=== PATIENT | female | born 1950 | race Two or more races ===

== ENCOUNTER 2017-10-05 04:32 | Emergency (ER) | payer OTHER, MEDICAID ==
[~2017-10-05] VITALS: Ht 152.4 cm; Wt 79.4 kg
[~2017-10-05 04:32] MED LIST: ASPI81TA27 PO; INSUINJ32; LOSA25TA9; METF-372; PRAV20TA3
[2017-10-05 05:42] LABS: Urine Bacteria NONE SEEN /hpf (None Seen); Urine Blood Negative /uL (Negative); Urine Mucus FEW (None Seen); Urine Specific Gravity 1.024 (1.001-1.035); Urine WBC 4 /hpf (0 - 5)
[2017-10-05 05:54] LABS: Basophils # (auto) 0 uL; Basophils % (auto) 0.2 % (0.0-2.0); Eosinophils # (auto) 0 uL; Eosinophils % (auto) 0.2 % (0.0-7.0); Hemoglobin 13.2 g/dL (12.2-16.2); Lymphocytes # (auto) 1.5 uL; Lymphocytes % (auto) 15.4 % (10.0-50.0); Mean Corpuscular Hemoglobin 30.6 pg (28.0-32.0); Mean Corpuscular Hgb Conc. 33.9 g/dL (32.0-36.0); Mean Corpuscular Volume 90.1 fL (80.0-100.0); Monocytes # (auto) 0.5 uL; Monocytes % (auto) 5.2 % (0.0-12.0); Neutrophils # (auto) 7.8 uL; Platelet Count (auto) 235 10^3/uL (140-450); Red Blood Cells 4.33 10^6/uL (4.0-5.20); Red Cell Distribution Width 13.8 % (11.8-14.3); White Blood Cell 9.8 10^3/uL (4.4-10.8)
[2017-10-05 06:13] LABS: Alanine Aminotransferase 101 U/L (13-56); Albumin 3.5 g/dL (3.4-5.0); Amylase 24 U/L (25-115); Anion Gap 8 (5-15); Aspartate Aminotransferase 88 U/L (15-37); BUN/Creatinine Ratio 12.7; Blood Urea Nitrogen 8 mg/dL (7-18); Calcium 8.5 mg/dL (8.5-10.1); Carbon Dioxide 26 mmol/L (21-32); Chloride 101 mmol/L (98-107); GFR African American 122 mL/min; GFR Non-African American 100 mL/min; Glucose 267 mg/dL (74-106); Lipase 117 U/L (73-393); Potassium 3.9 mmol/L (3.5-5.1); Sodium 135 mmol/L (136-145)
[2017-10-05 06:18] LABS: Alkaline Phosphatase 195 U/L (45-117); Bilirubin, Total 0.5 mg/dL (0.2-1.0)
[2017-10-05 11:19] VITALS: BP 98/65
== END 2017-10-05 13:09 | disposition home or self-care (01) ==
LOC: ER 04:32
DX: N39.0 Urinary tract infection, site not specified (principal); I10 Essential (primary) hypertension; E11.65 Type 2 diabetes mellitus with hyperglycemia; R74.8 Abnormal levels of other serum enzymes; M19.90 Unspecified osteoarthritis, unspecified site; Z79.82 Long term (current) use of aspirin; Z79.4 Long term (current) use of insulin
CPT/HCPCS: 36415; 74176; 80053; 81001; 82150; 83690; 84484; 85025; 93005

== ENCOUNTER 2020-03-13 21:00 | Inpatient (IN) | payer OTHER, MEDICAID ==
[~2020-03-13] VITALS: Ht 160 cm; Wt 33.9 kg
[~2020-03-13 21:00] MED LIST changes: +ASPI-543 PO; -ASPI81TA27 PO; +LOSA25TA38; -LOSA25TA9
[2020-03-13] MEDS ORDERED: SODIUM CHLORIDE 0.9% 1,000 ML IV ONE (21:17)
[2020-03-13 22:18] LABS: Red Blood Cells 3.86 10^6/uL (4.0-5.20)
[2020-03-13 22:20] LABS: Hematocrit 37.8 % (36.0-46.0); Hemoglobin 12.2 g/dL (12.2-16.2); Mean Corpuscular Hemoglobin 31.6 pg (28.0-32.0); Mean Corpuscular Hgb Conc. 32.2 g/dL (32.0-36.0); Platelet Count (auto) 62 10^3/uL (140-450); Red Cell Distribution Width 15.5 % (11.8-14.3); White Blood Cell 28.5 10^3/uL (4.4-10.8)
[2020-03-13 22:29] LABS: Basophils % (manual) 0 (0.0-2.0); Blast Cells 0; Eosinophils % (manual) 0 (0-7); Promyelocytes % 0; Reactive Lymphocytes 0
[2020-03-13 22:39] LABS: Albumin 2.5 g/dL (3.4-5.0); Calcium 7.9 mg/dL (8.5-10.1); Magnesium 1.7 mg/dL (1.6-2.6); Potassium 3.9 mmol/L (3.5-5.1)
[2020-03-13 22:48] LABS: BUN/Creatinine Ratio 10.9; Bilirubin, Total 1.4 mg/dL (0.2-1.0); CRP High Sensitivity 9.63 mg/dL (< 0.3); Total Protein 6.2 g/dL (6.4-8.2)
[2020-03-13 23:18] LABS: Band Neutrophils % (manual) 15; Lymphocytes % (manual) 8 (10.0-50.0); Metamyelocytes % 3; Monocytes % (manual) 1 (0-12); Myelocytes % 1
[2020-03-13 23:46] LABS: INR 1.65 (0.9-1.15); Partial Thromboplastin Time 45.6 sec (23.64-32.05)
[2020-03-14 00:09] LABS: Urine Bacteria FEW /hpf (None Seen); Urine Blood 2+ /uL (Negative); Urine Hyaline Cast FEW /lpf (0 - 2); Urine Mucus FEW (None Seen); Urine Specific Gravity 1.013 (1.001-1.035); Urine WBC 107 /hpf (0 - 5)
[2020-03-14] MEDS ORDERED: PIPERACILLIN-TAZOB 3.375GM 100 ML IV ONE (00:15)
[2020-03-14] MEDS ORDERED: SODIUM CHLORIDE 0.9% 500 ML IV ONE (00:15)
[2020-03-14] MEDS ORDERED: ENOXAPARIN SOD 80 MG/0.8ML SYRINGE SC ONE (00:15)
[2020-03-14] MEDS ORDERED: DexAMETHasone SOD PHOS 10MG/1ML VIAL INJ ONE (00:28)
[2020-03-14] MEDS ORDERED: NOREPINEPHRINE 8 MG/250ML KIT 250 ML IV SCH ×2 (01:14→08:15)
[2020-03-14 01:42] LABS: Lactic Acid w/Reflex 6.5 mmol/L (0.4-2.0)
[2020-03-14] MEDS ORDERED: SODIUM CHLORIDE 0.9% 1,000 ML IV SCH (04:07)
[2020-03-14] MEDS ORDERED: ATORVASTATIN 20 MG TAB PO ONE (04:15)
[2020-03-14] MEDS ORDERED: DOCUSATE SOD 100 MG CAP PO PRN (04:15)
[2020-03-14] MEDS ORDERED: MORPHINE SULF INJ 2 MG/ML SYRINGE 1ML IV PRN (04:15)
[2020-03-14] MEDS ORDERED: ACETAMINOPHEN 325 MG TAB PO PRN (04:15)
[2020-03-14] MEDS ORDERED: ONDANSETRON HCL 4 MG/2 ML VIAL IV PRN (04:15)
[2020-03-14] MEDS ORDERED: IPRATROPIUM BROM 0.5 MG/2.5ML INH SOL NEB PRN (04:15)
[2020-03-14] MEDS ORDERED: HYDROcodone-ACET 5/325MG TAB PO PRN (04:15)
[2020-03-14] MEDS ORDERED: DEXTROSE (50%) 50ML SYRG IV PRN (04:15)
[2020-03-14] MEDS ORDERED: ALBUTEROL SULF 2.5 MG/0.5ML(0.5%) NEB SOLN NEB PRN (04:15)
[2020-03-14] MEDS ORDERED: VANCOMYCIN PER PHARMACY 0 MG IV SCH (04:15)
[2020-03-14] MEDS ORDERED: METOPROLOL TARTRATE 1MG/1ML-5ML VIAL IV PRN (04:15)
[2020-03-14] MEDS ORDERED: VANCOMYCIN 1GM/250ML 250 ML IV ONE (05:00)
[2020-03-14] MEDS ORDERED: PIPERACILLIN-TAZOB 3.375GM 100 ML IV SCH (06:00)
--- NOTE | 2020-03-14 07:09 | NUR ---
Respiratory note: ASSESSED PT FOR PRN MED NEB AT THIS TIME, NO DISTRESS NOTED, NO TX INDICATED. PULSE OX 95% ON RA, HR 103, RR 22, BILATERAL BS DECREASED
[2020-03-14] MEDS ORDERED: InsuLIN REG 1unit/0.01ml Soln (100units/ml) SC SCH (08:00)
[2020-03-14] MEDS ORDERED: ACCU-CHEK COMFORT CURVE STRIP VI SCH (08:00)
[2020-03-14] MEDS ORDERED: SODIUM CHLORIDE 0.9% 1,000 ML IV ONE (08:15)
[2020-03-14] MEDS ORDERED: FUROSEMIDE 20 MG/2 ML VIAL ONE (08:18)
[2020-03-14] MEDS ORDERED: cefTRIAXone 1GM/50ML D5W 50 ML IV SCH (09:00)
[2020-03-14 09:47] VITALS: BP 113/60
[2020-03-14] MEDS ORDERED: DOCUSATE SOD 100 MG CAP PO SCH (10:00)
[2020-03-14] MEDS ORDERED: DexAMETHasone INJECTION 10 MG in D5W 5% 50 ML IV SCH (10:00)
[2020-03-14] MEDS ORDERED: methylPREDNISolone SOD SUCC 125 MG/2 ML VL IV SCH (10:00)
[2020-03-14] MEDS ORDERED: CLOPIDOGREL BISULFATE 75 MG TAB PO SCH (10:00)
[2020-03-14] MEDS ORDERED: ASPirin 81 mg TAB PO SCH (10:00)
[2020-03-14] MEDS ORDERED: ENOXAPARIN SOD 80 MG/0.8ML SYRINGE SC SCH (22:00)
[2020-03-15] MEDS ORDERED: VANCOMYCIN 1GM/250ML 250 ML IV SCH (05:00)
== END 2020-03-14 09:30 | disposition left against medical advice (07) | DRG 871 ==
LOC: ER 21:00 → EDBD 21:00 → TELE 21:01
PROVIDERS: ADMIT Hospitalist; ATTEND Internal Medicine
DX: A41.9 Sepsis, unspecified organism (principal); R65.21 Severe sepsis with septic shock; I21.4 Non-ST elevation (NSTEMI) myocardial infarction; N17.9 Acute kidney failure, unspecified; N39.0 Urinary tract infection, site not specified; K72.90 Hepatic failure, unspecified without coma; Z20.828 Contact with and (suspected) exposure to other viral communicable diseases; E78.5 Hyperlipidemia, unspecified; I10 Essential (primary) hypertension; M19.90 Unspecified osteoarthritis, unspecified site; E11.9 Type 2 diabetes mellitus without complications; Z79.899 Other long term (current) drug therapy; Z53.29 Procedure and treatment not carried out because of patient's decision for other reasons
CPT/HCPCS: 36415; 36600; 71045; 80053; 81001; 82728; 82805; 83605; 83615; 83735; 83880; 84484; 85007; 85027; 85379; 85610; 85730; 86141; 87040; 87077; 87086; 87186; 93005; 96365; 96366; 96368; 96372; 99291; G0378; J1100; J1815; J2543; J7060